=== PATIENT | male | born 1945 | race Hispanic/Latino ===

== ENCOUNTER → 2020-01-17 | Outpatient (CLI) | payer OTHER ==
[~2020-01-17] VITALS: Ht 177.8 cm; Wt 86.2 kg
[~2020-01-17] MED LIST: ASPI-1181 PO; ATOR40TA71 PO; HYDR25TA PO; ISOS30TA6 PO; RANO10003 PO; REGADENOSON 0.4 MG/5 ML PF SYG IVP SCH; TAMS0.4C32 PO; TEMA15CA PO
== END ==
LOC: SHCH 08:31
PROVIDERS: ATTEND Internal Medicine Cardiovascular Disease
DX: I20.9 Angina pectoris, unspecified (principal)
CPT/HCPCS: 78452; 93017; 96374; A9500; J2785